=== PATIENT | female | born 1955 | race Caucasian/White ===

== ENCOUNTER 2018-07-11 15:42 | Inpatient (IN) | payer OTHER, MEDICARE ==
[2018-07-11 16:36] LABS: HGB - HEMOGLOBIN 10.8 g/dL (12.0-16.0); MEAN CORPUSCULAR HEMOGLOBIN 27.7 pg (27.0-31.0); MEAN CORPUSCULAR HGB CONC 32.9 g/dL (32.0-36.0); MEAN CORPUSCULAR VOLUME 84.2 fL (81.0-99.0); MEAN PLATELET VOLUME 6.2 fL (7.9-10.8); RED BLOOD COUNT 3.88 10^6/uL (4.20-5.40); RED CELL DISTRIBUTION WIDTH 13.7 % (12.0-15.0); WHITE BLOOD COUNT 11.1 x10^3/uL (4.8-10.8)
[2018-07-11 16:49] LABS: ALBUMIN 3.6 g/dL (3.2-5.5); ALBUMIN/GLOBULIN RATIO 1.1 (1.0-2.2); BILIRUBIN,TOTAL 0.5 mg/dL (0.2-1.0); CALCIUM 8.6 mg/dL (8.5-10.3); CREATININE 0.9 mg/dL (0.4-1.0); TOTAL PROTEIN 6.8 g/dL (6.7-8.2)
--- NOTE | 2018-07-11 16:50 | ED Physician Documentation ---
PD HPI GI BLEED - Stated complaint Stated Complaint: BLOODY STOOL/1 WK POST OP - Chief complaint Chief Complaint: Abd Pain - History obtained from History obtained from: Patient - History of Present Illness Timing - onset: Yesterday (LLQ pain and bloody diarrhea started yesterday and continues today.) Timing - duration: Days (2) Timing - details: Abrupt onset, Still present Associated symptoms: BRBPR, Diarrhea Contributing factors: NSAID use. No: Sick contact, Bad food, Recent antibiotics Improved by: BM. No: Eating Worsened by: Position, Palpation. No: Eating Similar symptoms before: Has not had sx before (History of diverticuli on prior colonoscopies but no diverticulitis episodes in the past.) Recently seen: Surgery (right knee replacement about 10 days ago.) Review of Systems Constitutional: reports: Fatigue. denies: Fever, Chills Nose: denies: Rhinorrhea / runny nose, Congestion Throat: denies: Sore throat Cardiac: denies: Chest pain / pressure Respiratory: denies: Dyspnea, Cough GI: reports: Abdominal Pain, Nausea, Diarrhea, Bloody / black stool. denies: Vomiting : denies: Dysuria, Frequency Skin: denies: Rash, Lesions Neurologic: reports: Generalized weakness. denies: Focal weakness, Numbness PD PAST MEDICAL HISTORY - Past Medical History Past Medical History: Yes Cardiovascular: None Respiratory: None Neuro: None Endocrine/Autoimmune: HyPOthyroidism GI: Hiatal hernia MEDICAL SERVICES ASSISTANT: None : None HEENT: None Psych: None Musculoskeletal: Other - Past Surgical History General: Hiatal hernia repair Ortho: Other - Present Medications Home Medications: Ambulatory Orders Medication Instructions Recorded Confirmed Acetaminophen [Tylenol] 650 mg PO Q6H PRN 07/11/18 07/11/18 Aspirin Chewable [St 07/11/18 Aspirin] Celecoxib [CeleBREX] 200 mg PO DAILY 07/11/18 07/11/18 Diclofenac Sodium 100 gm TP 07/11/18 07/11/18 Ferrous Gluconate 07/11/18 Gabapentin [Neurontin] 100 mg PO ONCE 07/11/18 07/11/18 Glucosamine/D3/Boswellia Samia 07/11/18 [Osteo Bi-Flex Tablet] HYDROmorphone [Dilaudid] 2 mg PO Q6H 07/11/18 07/11/18 Lactobacillus Acidophilus 07/11/18 [Probiotic Acidophilus] Levothyroxine [Synthroid] 07/11/18 Lidocaine Patch 5% [Lidoderm Patch] 07/11/18 Ondansetron HCl [Zofran] 4 mg PO 07/11/18 Sennosides [Evac-U-Gen] 8.6 mg PO 07/11/18 - Allergies Allergies/Adverse Reactions: Allergies Allergy/AdvReac Type Severity Reaction Status Date / Time cortisone Allergy Anaphylaxis Verified 11/17/15 10:34 valacyclovir Allergy Emesis Verified 07/11/18 16:10 - Social History Does the pt smoke?: No Smoking Status: Never smoker Does the pt drink ETOH?: No Does the pt have substance abuse?: No - Immunizations Immunizations are current?: Yes - POLST Patient has POLST: No PD ED PE NORMAL - Vitals Vital signs reviewed: Yes - General General: Alert and oriented X 3, Well developed/nourished, Other (appesra in pain due to abd. ) - HEENT HEENT: Moist mucous membranes, Pharynx benign - Neck Neck: Supple, no meningeal sign, No adenopathy - Cardiac Cardiac: RRR, No murmur - Respiratory Respiratory: Clear bilaterally - Abdomen Abdomen: Normal bowel sounds, Soft, Non distended, No organomegaly, Other (tender LLQ with local guarding but no percussion nor rebound tenderness. ) - Female Female : Deferred - Rectal Rectal: Deferred, Other (she had BM in ER, into commode, and had red bloody diarrhea, about 30 ml. ) - Back Back: No CVA TTP - Derm Derm: Normal color - Extremities Extremities: No edema, No calf tenderness / cord, Other (right knee with surgical wound anteriorly without sign of infection.) - Neuro Neuro: Alert and oriented X 3, No motor deficit, No sensory deficit, Normal speech - Psych Psych: Normal mood Results - Vitals Vitals: Vital Signs - 24 hr 07/11/18 07/11/18 16:07 18:25 Temperature 36 C L Heart Rate 80 68 Respiratory 20 16 Rate Blood Pressure 164/81 H 154/76 H O2 Saturation 100 98 Oxygen O2 Source Room air - Labs Labs: Microbiology 07/11/18 17:20 Clostridium difficile (PCR) - Final Stool Laboratory Tests 07/11/18 07/11/18 07/11/18 10:05 16:26 16:26 WBC 10.7 11.1 H RBC 3.22 L 3.88 L Hgb 9.1 L 10.8 L Hct 27.5 L 32.7 L MCV 85.3 84.2 MCH 28.4 27.7 MCHC 33.3 32.9 RDW 14.0 13.7 Plt Count 328 384 MPV 6.2 L 6.2 L PT INR APTT Sodium Potassium Chloride Carbon Dioxide Anion Gap BUN Creatinine Estimated GFR (MDRD) Glucose Calcium Total Bilirubin AST ALT Alkaline Phosphatase Total Protein Albumin Globulin Albumin/Globulin Ratio Lipase Blood Type B POSITIVE Antibody Screen NEGATIVE 07/11/18 07/11/18 16:26 16:26 WBC RBC Hgb Hct MCV MCH MCHC RDW Plt Count MPV PT 12.2 INR 1.1 APTT 26.8 Sodium 139 Potassium 3.7 Chloride 103 Carbon Dioxide 27 Anion Gap 9.0 BUN 29 H Creatinine 0.9 Estimated GFR (MDRD) 63 L Glucose 105 H Calcium 8.6 Total Bilirubin 0.5 AST 28 ALT 32 Alkaline Phosphatase 134 H Total Protein 6.8 Albumin 3.6 Globulin 3.2 Albumin/Globulin Ratio 1.1 Lipase 28 Blood Type Antibody Screen - Rads (name of study) abd CT Radiology: Prelim report reviewed (sigmoid diverticulitis without perforation nor abscess. ), EMP read contemporaneously PD MEDICAL DECISION MAKING - ED course Complexity details: reviewed results, re-evaluated patient, considered differential (consider diverticulitis vs c.diff or colitis. ), d/w patient - Sepsis Event Vital Signs: Vital Signs - 24 hr 07/11/18 07/11/18 16:07 18:25 Temperature 36 C L Heart Rate 80 68 Respiratory 20 16 Rate Blood Pressure 164/81 H 154/76 H O2 Saturation 100 98 Oxygen O2 Source Room air Departure - Departure Disposition: ED Place in Observation Clinical Impression: Bloody diarrhea, Acute diverticulitis Condition: Stable Record reviewed to determine appropriate education?: Yes Discharge Date/Time: 07/11/18 20:53
[2018-07-11 16:54] LABS: INR 1.1 (0.8-1.2); PT - PROTHROMBIN TIME 12.2 secs (9.9-12.6)
[2018-07-11] MEDS ORDERED: MORPHINE 10 MG/ML VIAL IVP STA (17:16)
[2018-07-11] MEDS ORDERED: metroNIDAZOLE 500 MG/100 ML 500 MG/100 ML BAG IV ONE (17:16)
[2018-07-11] MEDS ORDERED: SODIUM CHLORIDE 0.9% 1,000 ML IV ONE (17:16)
[2018-07-11] MEDS ORDERED: IOPAMIDOL-300 100 ML VIAL ONE (17:21)
[2018-07-11] MEDS ORDERED: IOPAMIDOL-300 100 ML VIAL IVP ONE (17:38)
--- NOTE | 2018-07-11 18:28 | CT Report ---
Reason: LLQ pain and bloody stool; eval for divertic Procedure Date: 07/11/2018 Accession Number: [id number] / [id number] Procedure: CT - Abdomen/Pelvis W/ CPT Code: FULL RESULT: EXAM: CT ABDOMEN AND PELVIS EXAM DATE: 07/11/2018 05:48 PM. CLINICAL HISTORY: Left lower quadrant pain. Bloody stool. COMPARISONS: None. TECHNIQUE: Routine helical CT imaging was performed through the abdomen and pelvis. IV contrast: 100 cc Isovue-300. Enteric contrast: No. Reconstructions: Coronal and sagittal. In accordance with CT protocol optimization, one or more of the following dose reduction techniques were utilized for this exam: automated exposure control, adjustment of mA and/or KV based on patient size, or use of iterative reconstructive technique. FINDINGS: Lung Bases: Unremarkable. Liver: Normal. No masses. Gallbladder/Bile Ducts: Unremarkable. Spleen: Normal. Pancreas: Normal. Adrenal Glands: Normal. Kidneys: Normal. No masses or hydronephrosis. Peritoneal Cavity/Bowel: Diverticula off the colon. Mild wall thickening, mildly inflamed diverticuli and minimal adjacent edema involving a 3 cm segment proximal sigmoid colon coronal image 27, axial image 67. No extraluminal air nor abscess. No free air, free fluid nor adenopathy. Appendix not visualized but no inflammatory changes adjacent to the cecum. Pelvic Organs: Normal. The bladder and visualized pelvic organs are within normal limits. Vasculature: No aneurysms or other significant abnormality. Bones: No significant abnormality. Other: None. IMPRESSION: 1. 3 cm segment of mildly abnormal proximal sigmoid colon consistent with uncomplicated diverticulitis. Full differential would include colitis, pseudomembranous colitis, inflammatory bowel disease or ischemia. 2. The rest of the study is unremarkable. RADIA
[2018-07-11] MEDS ORDERED: cefTRIAXone 1 GM in SODIUM CHLORIDE 0.9% MINIBAG 100 ML IV STA (18:34)
[2018-07-11] MEDS ORDERED: HYDROmorphone 1 MG/ML CARPUJECT IVP STA (18:56)
[2018-07-11] MEDS ORDERED: KETOROLAC 15 MG/ML VIAL IVP STA (18:56)
[2018-07-11] MEDS ORDERED: ONDANSETRON 4 MG/2 ML VIAL IVP PRN (20:00)
[2018-07-11] MEDS ORDERED: ONDANSETRON ODT 4 MG TABLET TL PRN (20:00)
[2018-07-11] MEDS ORDERED: PIPERACILLIN/TAZOBACTAM 3.375 GM in SODIUM CHLORIDE 0.9% MINIBAG 100 ML IV STA (20:09)
[2018-07-11] MEDS ORDERED: GABAPENTIN 100 MG CAPSULE PO SCH (21:00)
[2018-07-11] MEDS: SODIUM CHLORIDE 0.9% 1,000 ML IV SCH (21:11)
[2018-07-11] MEDS: SODIUM CHLORIDE FLUSH 0.9% 10 ML SYRINGE IVP PRN (21:11)
[2018-07-11] MEDS: oxyCODONE 5 MG TABLET PO PRN (21:52)
[2018-07-11] MEDS: PIPERACILLIN/TAZOBACTAM 3.375 GM in SODIUM CHLORIDE 0.9% MINIBAG 100 ML IV SCH (21:53)
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
[2018-07-11 22:15] LABS: HGB - HEMOGLOBIN 9.1 g/dL (12.0-16.0); MEAN CORPUSCULAR HEMOGLOBIN 28.4 pg (27.0-31.0); MEAN CORPUSCULAR HGB CONC 33.3 g/dL (32.0-36.0); MEAN CORPUSCULAR VOLUME 85.3 fL (81.0-99.0); MEAN PLATELET VOLUME 6.2 fL (7.9-10.8); RED BLOOD COUNT 3.22 10^6/uL (4.20-5.40); WHITE BLOOD COUNT 10.7 x10^3/uL (4.8-10.8)
[2018-07-11] MEDS: SODIUM CHLORIDE FLUSH 0.9% 10 ML SYRINGE IVP SCH (23:32)
[2018-07-12] MEDS: SODIUM CHLORIDE FLUSH 0.9% 10 ML SYRINGE IVP PRN (00:22)
[2018-07-12] MEDS: HYDROmorphone 2 MG/ML VIAL IVP PRN ×3 (00:22→15:54)
[2018-07-12] MEDS: oxyCODONE 5 MG TABLET PO PRN ×4 (02:26→23:51)
[2018-07-12] MEDS: PIPERACILLIN/TAZOBACTAM 3.375 GM in SODIUM CHLORIDE 0.9% MINIBAG 100 ML IV SCH ×3 (05:06→20:49)
[2018-07-12 05:50] LABS: BASOPHILS # (AUTO) 0.1 10^3/uL (0.0-0.1); BASOPHILS % (AUTO) 0.6 %; CALCIUM 7.4 mg/dL (8.5-10.3); CREATININE 0.8 mg/dL (0.4-1.0); EOSINOPHILS # (AUTO) 0.2 10^3/uL (0.0-0.7); EOSINOPHILS % (AUTO) 1.8 %; HGB - HEMOGLOBIN 8.1 g/dL (12.0-16.0); LYMPHOCYTES # (AUTO) 1.3 10^3/uL (1.5-3.5); LYMPHOCYTES % (AUTO) 14.7 %; MEAN CORPUSCULAR HGB CONC 34.2 g/dL (32.0-36.0); MEAN CORPUSCULAR VOLUME 84.7 fL (81.0-99.0); MEAN PLATELET VOLUME 6.3 fL (7.9-10.8); MONOCYTES # (AUTO) 0.3 10^3/uL (0.0-1.0); MONOCYTES % (AUTO) 3.8 %; NEUTROPHILS # (AUTO) 7.2 10^3/uL (1.5-6.6); NEUTROPHILS % (AUTO) 79.1 %; PLT - PLATELET COUNT 321 10^3/uL (130-450); RED CELL DISTRIBUTION WIDTH 13.8 % (12.0-15.0)
[2018-07-12] MEDS ORDERED: ACETAMINOPHEN 325 MG TABLET PO SCH (08:58)
[2018-07-12] MEDS ORDERED: diphenhydrAMINE 25 MG CAPSULE PO SCH (08:58)
[2018-07-12] MEDS ORDERED: SODIUM CHLORIDE 0.9% 1,000 ML IV SCH (09:00)
[2018-07-12] MEDS: SODIUM CHLORIDE FLUSH 0.9% 10 ML SYRINGE IVP SCH ×2 (09:01→15:55)
[2018-07-12] MEDS: POLYETHYLENE GLYCOL 3350 17 GM PACKET PO SCH (09:01)
--- NOTE | 2018-07-12 09:03 | PROVIDER PROGRESS NOTE ---
Subjective - Prog Note Date Prog Note Date: 07/12/18 Prog Note Time: 09:00 - Subjective Pt reports feeling: Improved Subjective: Skye complains of ongoing LLQ pain, and states that she has not had any BMs since admission. She denies any new symptoms such as increased shortness of breath, nausea, vomiting, rashes, or a new cough. Current Medications - Current Medications Current Medications: Active Medications Ferrous Gluconate (Fergon) 324 mg PO DAILYWM [facility] Last Admin: 07/12/18 09:44 Dose: 324 mg Hydromorphone HCl (Dilaudid (Vial)) 2 mg IVP Q2H PRN PRN Reason: PAIN Last Admin: 07/12/18 15:54 Dose: 2 mg Sodium Chloride (Normal Saline 0.9%) 1,000 mls @ 85 mls/hr IV .[id number] [facility] Last Admin: 07/12/18 13:13 Dose: 85 mls/hr Piperacillin Sod/Tazobactam (Sod 3.375 gm/ Sodium Chloride) 100 mls @ 200 mls/hr IV Q8H [facility] Last Infusion: 07/12/18 14:27 Dose: Infused Sodium Chloride (Normal Saline 0.9%) 1,000 mls @ 0 mls/hr IV .Q0M SUHAIL Ibuprofen (Motrin) 800 mg PO BID PRN PRN Reason: PAIN Lactobacillus Rhamnosus (Culturelle) 1 cap PO DAILYWM [facility] Last Admin: 07/12/18 12:07 Dose: 1 cap Levothyroxine Sodium (Synthroid) 75 mcg PO QDAC [facility] Last Admin: 07/12/18 09:44 Dose: 75 mcg Ondansetron HCl (Zofran Inj) 4 mg IVP Q6HR PRN PRN Reason: Nausea / Vomiting Ondansetron HCl (Zofran Odt) 4 mg TL Q6HR PRN PRN Reason: Nausea / Vomiting Last Admin: 07/12/18 02:04 Dose: 4 mg Oxycodone HCl (Roxicodone) 5 mg PO Q4HR PRN PRN Reason: Pain 5 to 7 Last Admin: 07/12/18 11:54 Dose: 5 mg Polyethylene Glycol (Miralax) 17 gm PO DAILY [facility] Last Admin: 07/12/18 09:01 Dose: Not Given Sodium Chloride (Normal Saline Flush 0.9%) 10 ml IVP PRN PRN PRN Reason: NEEDED PER PROVIDER ORDERS Last Admin: 07/12/18 00:22 Dose: 10 ml Sodium Chloride (Normal Saline Flush 0.9%) 10 ml IVP 0100,0900,1700 SUHAIL Last Admin: 07/12/18 15:55 Dose: 10 ml Ferrous Gluconate 324 mg PO DAILY 07/11/18 Glucosamine/D3/Boswellia Samia [Osteo Bi-Flex Tablet] 1 tab PO DAILY 07/11/18 Lactobacillus Acidophilus [Probiotic Acidophilus] 1 cap PO DAILY 07/11/18 Levothyroxine [Synthroid] 75 mcg PO QDAC 07/11/18 Ibuprofen 800 mg PO BID PRN 07/12/18 Objective - Vital Signs/Intake & Output Reviewed Vital Signs: Yes Vital Signs: Vital Signs x48h Temp Pulse Resp BP Pulse Ox 07/12/18 08:00 36.8 C 66 16 107/40 L 99 Intake & Output: Intake & Output 07/09/18 07/10/18 07/11/18 07/12/18 23:59 23:59 23:59 23:59 Intake Total 1300 240 Balance 1300 240 - Objective General Appearance: positive: No acute distress, Alert, Lethargic Eyes Bilateral: positive: PERRL ENT: positive: ENT inspection nml, Dry mucous membranes Neck: positive: No JVD Respiratory: positive: Chest non-tender, No respiratory distress, Breath sounds nml Cardiovascular: positive: Regular rate & rhythm, No murmur, No gallop Peripheral Pulses: 1+ Radial (R), 1+ Radial (L) Abdomen: positive: Tenderness (LLQ), Guarding, Abnml bowel sounds, Other (rounded, soft) Back: positive: Nml inspection Skin: positive: No rash, Warm, Dry, Pallor Extremities: positive: Non-tender, Pedal edema, Joint swelling (right knee) Neurologic/Psychiatric: positive: Oriented x3, CN's nml (2-12), Motor nml, Sensation nml, Mood/affect nml Reflexes: Bicep (R): 3+, Bicep (L): 3+ - Lab Results Fish Bones: 07/12/18 15:20 07/12/18 05:31 Other Labs: Lab Results x24hrs 0907/12/18 07/11/18 Range/Units 05:31 05:31 16:26 WBC 9.0 (4.8-10.8) x10^3/uL RBC 2.80 L (4.20-5.40) 10^6/uL Hgb 8.1 L (12.0-16.0) g/dL Hct 23.7 L (37.0-47.0) % MCV 84.7 (81.0-99.0) fL MCH 29.0 (27.0-31.0) pg MCHC 34.2 (32.0-36.0) g/dL RDW 13.8 (12.0-15.0) % Plt Count 321 (130-450) 10^3/uL MPV 6.3 L (7.9-10.8) fL Neut # (Auto) 7.2 H (1.5-6.6) 10^3/uL Lymph # (Auto) 1.3 L (1.5-3.5) 10^3/uL [place] # (Auto) 0.3 (0.0-1.0) 10^3/uL Eos # (Auto) 0.2 (0.0-0.7) 10^3/uL Baso # (Auto) 0.1 (0.0-0.1) 10^3/uL Absolute Nucleated RBC 0.00 x10^3/uL Nucleated RBC % 0.0 /100WBC PT (9.9-12.6) secs INR (0.8-1.2) APTT (24.9-33.3) secs Sodium 138 139 (135-145) mmol/L Potassium 3.9 3.7 (3.5-5.0) mmol/L Chloride 105 103 (101-111) mmol/L Carbon Dioxide 26 27 (21-32) mmol/L Anion Gap 7.0 9.0 (6-13) BUN 24 H 29 H (6-20) mg/dL Creatinine 0.8 0.9 (0.4-1.0) mg/dL Estimated GFR (MDRD) 72 L 63 L (>89) Glucose 98 105 H (70-100) mg/dL Calcium 7.4 L 8.6 (8.5-10.3) mg/dL Total Bilirubin 0.5 (0.2-1.0) mg/dL AST 28 (10-42) IU/L ALT 32 (10-60) IU/L Alkaline Phosphatase 134 H (42-121) IU/L Total Protein 6.8 (6.7-8.2) g/dL Albumin 3.6 (3.2-5.5) g/dL Globulin 3.2 (2.1-4.2) g/dL Albumin/Globulin Ratio 1.1 (1.0-2.2) Lipase 28 (22-51) U/L Blood Type Antibody Screen 07/11/18 07/11/18 07/11/18 Range/Units 16:26 16:26 16:26 WBC 11.1 H (4.8-10.8) x10^3/uL RBC 3.88 L (4.20-5.40) 10^6/uL Hgb 10.8 L (12.0-16.0) g/dL Hct 32.7 L (37.0-47.0) % MCV 84.2 (81.0-99.0) fL MCH 27.7 (27.0-31.0) pg MCHC 32.9 (32.0-36.0) g/dL RDW 13.7 (12.0-15.0) % Plt Count 384 (130-450) 10^3/uL MPV 6.2 L (7.9-10.8) fL Neut # (Auto) (1.5-6.6) 10^3/uL Lymph # (Auto) (1.5-3.5) 10^3/uL [place] # (Auto) (0.0-1.0) 10^3/uL Eos # (Auto) (0.0-0.7) 10^3/uL Baso # (Auto) (0.0-0.1) 10^3/uL Absolute Nucleated RBC x10^3/uL Nucleated RBC % /100WBC PT 12.2 (9.9-12.6) secs INR 1.1 (0.8-1.2) APTT 26.8 (24.9-33.3) secs Sodium (135-145) mmol/L Potassium (3.5-5.0) mmol/L Chloride (101-111) mmol/L Carbon Dioxide (21-32) mmol/L Anion Gap (6-13) BUN (6-20) mg/dL Creatinine (0.4-1.0) mg/dL Estimated GFR (MDRD) (>89) Glucose (70-100) mg/dL Calcium (8.5-10.3) mg/dL Total Bilirubin (0.2-1.0) mg/dL AST (10-42) IU/L ALT (10-60) IU/L Alkaline Phosphatase (42-121) IU/L Total Protein (6.7-8.2) g/dL Albumin (3.2-5.5) g/dL Globulin (2.1-4.2) g/dL Albumin/Globulin Ratio (1.0-2.2) Lipase (22-51) U/L Blood Type B POSITIVE Antibody Screen NEGATIVE 07/11/18 Range/Units 10:05 WBC 10.7 (4.8-10.8) x10^3/uL RBC 3.22 L (4.20-5.40) 10^6/uL Hgb 9.1 L (12.0-16.0) g/dL Hct 27.5 L (37.0-47.0) % MCV 85.3 (81.0-99.0) fL MCH 28.4 (27.0-31.0) pg MCHC 33.3 (32.0-36.0) g/dL RDW 14.0 (12.0-15.0) % Plt Count 328 (130-450) 10^3/uL MPV 6.2 L (7.9-10.8) fL Neut # (Auto) (1.5-6.6) 10^3/uL Lymph # (Auto) (1.5-3.5) 10^3/uL [place] # (Auto) (0.0-1.0) 10^3/uL Eos # (Auto) (0.0-0.7) 10^3/uL Baso # (Auto) (0.0-0.1) 10^3/uL Absolute Nucleated RBC x10^3/uL Nucleated RBC % /100WBC PT (9.9-12.6) secs INR (0.8-1.2) APTT (24.9-33.3) secs Sodium (135-145) mmol/L Potassium (3.5-5.0) mmol/L Chloride (101-111) mmol/L Carbon Dioxide (21-32) mmol/L Anion Gap (6-13) BUN (6-20) mg/dL Creatinine (0.4-1.0) mg/dL Estimated GFR (MDRD) (>89) Glucose (70-100) mg/dL Calcium (8.5-10.3) mg/dL Total Bilirubin (0.2-1.0) mg/dL AST (10-42) IU/L ALT (10-60) IU/L Alkaline Phosphatase (42-121) IU/L Total Protein (6.7-8.2) g/dL Albumin (3.2-5.5) g/dL Globulin (2.1-4.2) g/dL Albumin/Globulin Ratio (1.0-2.2) Lipase (22-51) U/L Blood Type Antibody Screen - Diagnostic Imaging Diagnostic Imaging Results: positive: Final report reviewed Diagnostic Imaging Comments: EXAM: CT ABDOMEN AND PELVIS EXAM DATE: 07/11/2018 05:48 PM. IMPRESSION: 1. 3 cm segment of mildly abnormal proximal sigmoid colon consistent with uncomplicated diverticulitis. Full differential would include colitis, pseudomembranous colitis, inflammatory bowel disease or ischemia. 2. The rest of the study is unremarkable. ABX Reporting Has patient been on IV antibiotics over the past 48 hours?: Yes Assessment/Plan - Problem List (1) Acute diverticulitis Impression: The patient is post-op after a right knee replacement and at home was very constipated, so took several different laxatives, which worked. She soon noticed that her stools were mixed with blood, then turned to straight blood diarrhea accompanied with LLQ abdominal sharp stabbing pain that radiates to her low back. She is found to have a mild elevation of her WBCs at 11.1. She is now on clear liquids and was started on IV Zosyn. Plan: Continue IV Zosyn and CL diet. Treat pain. (2) LLQ abdominal pain Impression: The patient states that she cannot link this pain to her oral intake. She is found to have acute diverticulitis upon imaging and this matches her symptoms. She has been on IV Zosyn. Plan: Continue IV dilaudid for pain control. Encourage ambulation. (3) Anemia Impression: The patient was found to have a slightly lower than baseline hemoglobin and hematocrit at 10.8 and 32.7, that are now lower at 8.1 and 23.7. She states that she becomes dizzy and slightly short of breath while in the bathroom. She is also mildly hypotensive this morning with a blood pressure of 107/40, when previously she had been 126/53 and hypertensive after arriving in the ED. She has no amish rejections to blood and is agreeable for replacement today. Plan: Transfuse 1 unit of blood, change to inpatient status, and re-check labs ~1600. 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 Plan: Continue to monitor and if only mildly elevated, will let PCP handle. Qualifiers: Hypertension type: unspecified Qualified Code(s): I10 - Essential (primary) hypertension (5) Status post total knee replacement, right Impression: The patient underwent a knee replacement on 06/30/18, and has an uncomplicated recovery with the exception of constipation. She was on DVT prophylaxis using a regular aspirin, that is temporarily on hold. She is encouraged to use SCDs until tomorrow when we can continue her Asprin given her falling H/H and blood transfusion today. Plan: Continue post-op care, and ensure that PT is ordered. (6) Iatrogenic hypothyroidism Impression: The patient is prescribed daily synthroid at 75mcg daily. Her last TSH is unknown. Plan: Check morning TSH, continue medication.
[2018-07-12] MEDS: LEVOTHYROXINE 75 MCG TABLET PO SCH (09:44)
[2018-07-12] MEDS: FERROUS GLUCONATE 324 MG TABLET PO SCH (09:44)
[2018-07-12] MEDS: LACTOBACILLUS RHAMNOSUS GG CAPSULE PO SCH (12:07)
[2018-07-12] MEDS: SODIUM CHLORIDE 0.9% 1,000 ML IV SCH (13:13)
[2018-07-12] MEDS ORDERED: ACETAMINOPHEN 325 MG TABLET PO PRN (20:59)
[2018-07-13] MEDS: SODIUM CHLORIDE 0.9% 1,000 ML IV SCH (02:03)
[2018-07-13] MEDS: SODIUM CHLORIDE FLUSH 0.9% 10 ML SYRINGE IVP SCH ×3 (02:03→16:32)
[2018-07-13] MEDS: IBUPROFEN 800 MG TABLET PO PRN ×2 (02:06→16:39)
[2018-07-13] MEDS: PIPERACILLIN/TAZOBACTAM 3.375 GM in SODIUM CHLORIDE 0.9% MINIBAG 100 ML IV SCH ×3 (04:57→20:36)
[2018-07-13] MEDS: oxyCODONE 5 MG TABLET PO PRN ×2 (04:57→09:46)
[2018-07-13 05:46] LABS: EOSINOPHILS % (AUTO) 4.7 %; HGB - HEMOGLOBIN 9.1 g/dL (12.0-16.0); LYMPHOCYTES % (AUTO) 19.5 %; MEAN CORPUSCULAR HEMOGLOBIN 28.3 pg (27.0-31.0); MEAN CORPUSCULAR HGB CONC 33.6 g/dL (32.0-36.0); MEAN CORPUSCULAR VOLUME 84.1 fL (81.0-99.0); MEAN PLATELET VOLUME 6.5 fL (7.9-10.8); NEUTROPHILS % (AUTO) 70.8 %; PLT - PLATELET COUNT 342 10^3/uL (130-450); RED CELL DISTRIBUTION WIDTH 14.2 % (12.0-15.0); WHITE BLOOD COUNT 7.9 x10^3/uL (4.8-10.8)
[2018-07-13 05:48] LABS: ABNORMAL LYMPHS % (MANUAL) 0 %; ALBUMIN 3.2 g/dL (3.2-5.5); ALBUMIN/GLOBULIN RATIO 1.2 (1.0-2.2); BAND NEUTROPHILS % (MANUAL) 0 %; BILIRUBIN,TOTAL 0.5 mg/dL (0.2-1.0); CALCIUM 7.9 mg/dL (8.5-10.3); CREATININE 0.7 mg/dL (0.4-1.0); TOTAL PROTEIN 5.9 g/dL (6.7-8.2)
[2018-07-13] MEDS: LEVOTHYROXINE 75 MCG TABLET PO SCH (06:46)
[2018-07-13 06:56] LABS: NEUTROPHILS % (MANUAL) 61 %
[2018-07-13 06:57] LABS: DIFFERENTIAL COMMENT MANUAL DIFFERENTIAL; EOSINOPHILS # (MANUAL) 0.6 10^3/uL (0-0.7); LYMPHOCYTES # (MANUAL) 2.1 10^3/uL (1.5-3.5); LYMPHOCYTES % (MANUAL) 26 %; METAMYELOCYTES % (MANUAL) 1 %; MONOCYTES # (MANUAL) 0.2 10^3/uL (0.0-1.0); MYELOCYTES % (MANUAL) 1 %; NEUTROPHILS # (MANUAL) 4.8 10^3/uL (1.5-6.6); PLATELET ESTIMATE, MANUAL NORMAL (130-450,000) (NORMAL); RBC MORPHOLOGY (MULTIPLE) NORMAL APPEARANCE (NORMAL)
[2018-07-13] MEDS: FERROUS GLUCONATE 324 MG TABLET PO SCH (07:54)
[2018-07-13] MEDS: LACTOBACILLUS RHAMNOSUS GG CAPSULE PO SCH (07:54)
[2018-07-13] MEDS: POLYETHYLENE GLYCOL 3350 17 GM PACKET PO SCH (09:09)
[2018-07-13] MEDS: ASPIRIN EC 325 MG TABLET PO SCH (09:12)
[2018-07-13] MEDS: SODIUM CHLORIDE FLUSH 0.9% 10 ML SYRINGE IVP PRN (20:36)
--- NOTE | 2018-07-13 20:51 | PROVIDER PROGRESS NOTE ---
Subjective - Prog Note Date Prog Note Date: 07/13/18 Prog Note Time: 08:00 - Subjective Pt reports feeling: Improved Subjective: Skye states that very early this morning she had some blood streaked stool, but is having less abdominal pain. She denies any new symptoms such as chest pain, vomiting, dizziness, shortness of breath, or dysuria. Current Medications - Current Medications Current Medications: Active Medications Acetaminophen (Tylenol) 650 mg PO Q6HR PRN PRN Reason: Pain or Fever > 38C (100.4F) Last Admin: 07/12/18 21:23 Dose: 650 mg Aspirin (Ecotrin) 325 mg PO DAILY [facility] Last Admin: 07/13/18 09:12 Dose: 325 mg Ferrous Gluconate (Fergon) 324 mg PO DAILYWM [facility] Last Admin: 07/13/18 07:54 Dose: 324 mg Hydromorphone HCl (Dilaudid (Vial)) 2 mg IVP Q2H PRN PRN Reason: PAIN Last Admin: 07/12/18 15:54 Dose: 2 mg Piperacillin Sod/Tazobactam (Sod 3.375 gm/ Sodium Chloride) 100 mls @ 200 mls/hr IV Q8H [facility] Last Admin: 07/13/18 20:36 Dose: 200 mls/hr Sodium Chloride (Normal Saline 0.9%) 1,000 mls @ 0 mls/hr IV .Q0M SUHAIL Ibuprofen (Motrin) 800 mg PO BID PRN PRN Reason: PAIN Last Admin: 07/13/18 16:39 Dose: 800 mg Lactobacillus Rhamnosus (Culturelle) 1 cap PO DAILYWM [facility] Last Admin: 07/13/18 07:54 Dose: 1 cap Levothyroxine Sodium (Synthroid) 75 mcg PO QDAC [facility] Last Admin: 07/13/18 06:46 Dose: 75 mcg Ondansetron HCl (Zofran Inj) 4 mg IVP Q6HR PRN PRN Reason: Nausea / Vomiting Last Admin: 07/13/18 09:47 Dose: 4 mg Ondansetron HCl (Zofran Odt) 4 mg TL Q6HR PRN PRN Reason: Nausea / Vomiting Last Admin: 07/12/18 02:04 Dose: 4 mg Oxycodone HCl (Roxicodone) 5 mg PO Q4HR PRN PRN Reason: Pain 5 to 7 Last Admin: 07/13/18 09:46 Dose: 5 mg Polyethylene Glycol (Miralax) 17 gm PO DAILY [facility] Last Admin: 07/13/18 09:09 Dose: Not Given Sodium Chloride (Normal Saline Flush 0.9%) 10 ml IVP PRN PRN PRN Reason: NEEDED PER PROVIDER ORDERS Last Admin: 07/13/18 20:36 Dose: 10 ml Sodium Chloride (Normal Saline Flush 0.9%) 10 ml IVP 0100,0900,1700 [facility] Last Admin: 07/13/18 16:32 Dose: 10 ml Ferrous Gluconate 324 mg PO DAILY 07/11/18 Glucosamine/D3/Boswellia Samia [Osteo Bi-Flex Tablet] 1 tab PO DAILY 07/11/18 Lactobacillus Acidophilus [Probiotic Acidophilus] 1 cap PO DAILY 07/11/18 Levothyroxine [Synthroid] 75 mcg PO QDAC 07/11/18 Ibuprofen 800 mg PO BID PRN 07/12/18 Objective - Vital Signs/Intake & Output Reviewed Vital Signs: Yes Vital Signs: Vital Signs x48h Temp Pulse Resp BP Pulse Ox 07/13/18 16:00 37.0 C 70 20 150/56 H 97 Intake & Output: Intake & Output 07/10/18 07/11/18 07/12/18 07/13/18 23:59 23:59 23:59 23:59 Intake Total 1300 3520 3210 Output Total 2 Balance 1300 3520 3208 - Objective General Appearance: positive: Alert, Mild distress Eyes Bilateral: positive: PERRL ENT: positive: ENT inspection nml, Pharynx nml, No signs of dehydration Neck: positive: Thyroid nml, No JVD Respiratory: positive: Chest non-tender, No respiratory distress, Breath sounds nml Cardiovascular: positive: Regular rate & rhythm, No gallop Peripheral Pulses: 1+ Radial (R), 1+ Radial (L) Abdomen: positive: Nml bowel sounds, Tenderness, Guarding, Other (obese, soft) Rectal: positive: Bloody stool Back: positive: Nml inspection Skin: positive: No rash, Warm, Dry, Pallor Extremities: positive: Pedal edema, Joint swelling (right post-op knee swelling) Neurologic/Psychiatric: positive: Oriented x3, CN's nml (2-12), Motor nml, Sensation nml, Mood/affect nml Reflexes: Bicep (R): 3+, Bicep (L): 3+ - Lab Results Fish Bones: 07/14/18 05:39 07/14/18 05:39 Other Labs: Lab Results x24hrs 07/13/18 07/13/18 Range/Units 05:18 05:18 WBC 7.9 (4.8-10.8) x10^3/uL RBC 3.20 L (4.20-5.40) 10^6/uL Hgb 9.1 L (12.0-16.0) g/dL Hct 26.9 L (37.0-47.0) % MCV 84.1 (81.0-99.0) fL MCH 28.3 (27.0-31.0) pg MCHC 33.6 (32.0-36.0) g/dL RDW 14.2 (12.0-15.0) % Plt Count 342 (130-450) 10^3/uL MPV 6.5 L (7.9-10.8) fL Neut # (Auto) Not Reportable Lymph # (Auto) Not Reportable [place] # (Auto) Not Reportable Eos # (Auto) Not Reportable Baso # (Auto) Not Reportable Absolute Nucleated RBC Not Reportable Total Counted 100 Band Neuts % (Manual) 0 (0 - 10) % Abnorm Lymph % (Manual) 0 % Metamyelocytes % 1 H ( - 0) % Myelocytes % 1 H ( - 0) % Nucleated RBC % Not Reportable Neutrophils # (Manual) 4.8 (1.5-6.6) 10^3/uL Lymphocytes # (Manual) 2.1 (1.5-3.5) 10^3/uL Monocytes # (Manual) 0.2 (0.0-1.0) 10^3/uL Eosinophils # (Manual) 0.6 (0-0.7) 10^3/uL Basophils # (Manual) 0.0 (0-0.1) 10^3/uL Differential Comment MANUAL DIFFERENTIAL Platelet Estimate NORMAL (130-450,000) (NORMAL) RBC Morph Micro Appear NORMAL APPEARANCE (NORMAL) Sodium 142 (135-145) mmol/L Potassium 3.6 (3.5-5.0) mmol/L Chloride 107 (101-111) mmol/L Carbon Dioxide 24 (21-32) mmol/L Anion Gap 11.0 (6-13) BUN 10 (6-20) mg/dL Creatinine 0.7 (0.4-1.0) mg/dL Estimated GFR (MDRD) 84 L (>89) Glucose 90 (70-100) mg/dL Calcium 7.9 L (8.5-10.3) mg/dL Total Bilirubin 0.5 (0.2-1.0) mg/dL AST 20 (10-42) IU/L ALT 21 (10-60) IU/L Alkaline Phosphatase 84 (42-121) IU/L Total Protein 5.9 L (6.7-8.2) g/dL Albumin 3.2 (3.2-5.5) g/dL Globulin 2.7 (2.1-4.2) g/dL Albumin/Globulin Ratio 1.2 (1.0-2.2) ABX Reporting Has patient been on IV antibiotics over the past 48 hours?: Yes Assessment/Plan - Problem List (1) Acute diverticulitis Impression: The patient is post-op after a right knee replacement and at home was very constipated, so took several different laxatives, which worked. She soon noticed that her stools were mixed with blood, then turned to straight blood diarrhea accompanied with LLQ abdominal sharp stabbing pain that radiates to her low back. She is found to have a mild elevation of her WBCs at 11.1, that is now normal. She is now on a regular diet, and IV Zosyn. Overnight she reported blood streaked stool. Plan: Continue IV Zosyn and a regular diet. Treat pain. (2) LLQ abdominal pain Impression: The patient states that she cannot link this pain to her oral intake. She is found to have acute diverticulitis upon imaging and this matches her symptoms. She continues on IV Zosyn. Plan: Continue IV dilaudid for pain control. Encourage ambulation. (3) Anemia Impression: The patient was found to have a slightly lower than baseline hemoglobin and hematocrit at 10.8 and 32.7, that are now lower at 8.1 and 23.7. She states that she becomes dizzy and slightly short of breath while in the bathroom. She was mildly hypotensive with a blood pressure of 107/40, when previously she had been 126/53 and hypertensive after arriving in the ED. She received one unit of PRBCs and has had an improvement in her blood level with an H/H of 9.1/26.9. Plan: Daily labs. Qualifiers: Anemia type: iron deficiency Iron deficiency anemia type: chronic blood loss Qualified Code(s): D50.0 - Iron deficiency anemia secondary to blood loss (chronic) (4) Hypertension Impression: The patient is not prescribed antihypertensives at home, and today she has normal blood pressures. Plan: Continue to monitor and if only mildly elevated, will let PCP handle. Qualifiers: Hypertension type: unspecified Qualified Code(s): I10 - Essential (primary) hypertension (5) Status post total knee replacement, right Impression: The patient underwent a knee replacement on 06/30/18, and has an uncomplicated recovery with the exception of constipation. She was on DVT prophylaxis using a regular aspirin. Plan: Continue post-op care. (6) Iatrogenic hypothyroidism Impression: The patient is prescribed daily synthroid at 75mcg daily. Her last TSH is unknown. Plan: Continue medication.
[2018-07-14] MEDS: IBUPROFEN 800 MG TABLET PO PRN ×2 (00:05→06:29)
[2018-07-14] MEDS: SODIUM CHLORIDE FLUSH 0.9% 10 ML SYRINGE IVP SCH ×2 (05:33→05:43)
[2018-07-14 05:58] LABS: BASOPHILS # (AUTO) 0.1 10^3/uL (0.0-0.1); BASOPHILS % (AUTO) 0.8 %; EOSINOPHILS # (AUTO) 0.3 10^3/uL (0.0-0.7); EOSINOPHILS % (AUTO) 3.9 %; HGB - HEMOGLOBIN 9.4 g/dL (12.0-16.0); LYMPHOCYTES # (AUTO) 1.2 10^3/uL (1.5-3.5); LYMPHOCYTES % (AUTO) 15.9 %; MEAN CORPUSCULAR HGB CONC 33.3 g/dL (32.0-36.0); MEAN CORPUSCULAR VOLUME 84.1 fL (81.0-99.0); MEAN PLATELET VOLUME 6.3 fL (7.9-10.8); MONOCYTES # (AUTO) 0.3 10^3/uL (0.0-1.0); MONOCYTES % (AUTO) 4.2 %; NEUTROPHILS # (AUTO) 5.7 10^3/uL (1.5-6.6); NEUTROPHILS % (AUTO) 75.2 %; PLT - PLATELET COUNT 376 10^3/uL (130-450); RED BLOOD COUNT 3.36 10^6/uL (4.20-5.40); RED CELL DISTRIBUTION WIDTH 14.1 % (12.0-15.0); WHITE BLOOD COUNT 7.5 x10^3/uL (4.8-10.8)
[2018-07-14 06:09] LABS: ALBUMIN 3.1 g/dL (3.2-5.5); ALBUMIN/GLOBULIN RATIO 1.1 (1.0-2.2); BILIRUBIN,TOTAL 0.4 mg/dL (0.2-1.0); CALCIUM 8.4 mg/dL (8.5-10.3); CREATININE 0.9 mg/dL (0.4-1.0); TOTAL PROTEIN 5.9 g/dL (6.7-8.2)
[2018-07-14] MEDS: LEVOTHYROXINE 75 MCG TABLET PO SCH (06:56)
--- NOTE | 2018-07-14 08:40 | Discharge Plan ---
Discharge Plan Disposition: Home, Self Care Condition: Good Prescriptions: Ciprofloxacin HCl [Cipro] 500 mg PO BID 10 Days #20 tablet Metronidazole [Flagyl] 500 mg PO BID 10 Days #20 tablet Saccharomyces Boulardii [Florastor] 250 mg PO BID #60 capsule Wheat Dextrin [Benefiber] 1 each PO DAILY #30 packet Diet: Regular Activity Restrictions: No Restrictions Shower Restrictions: No Driving Restrictions: No Weight Bearing: Full Weight Additional Instructions or Follow Up instructions: You were admitted for further treatment of your diverticulitis. You started on IV Zosyn, that will continue at home in an oral form using Ciprofloxacin and Flagyl for the next 10 days. You should take a probiotic to help maintain healthy gut bacteria. Try not to swallow these at the same exact moment as the antibiotics. It is recommended that you take Benefiber or Metamucil daily to achieve tooth paste consistency stool. Please have your PCP make a referral to get a colonoscopy in ~6 weeks. You became anemic, so you received one unit of packed red blood cells without difficulty. 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 Please see your PCP within one week. No Smoking: If you smoke, Please STOP! Call for help. Follow-up with: Ashlee Tejada MD [Primary Care Provider] -
[2018-07-14 08:41] VITALS: BP 139/59
--- NOTE | 2018-07-14 08:54 | DISCHARGE SUMMARY ---
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 Status post knee replacement (Z96.659) stable without complications. 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 Acute blood loss as cause of postoperative anemia (D62) new on this admission, iron supplement to continue. 1 unit of PRBCs given. Unspecified essential hypertension (I10) chronic, stable. LLQ abdominal pain (R10.32) resolved. - HPI History of Present Illness: HPI per Dr. Rodriguez: She is a 63-year-old female who has had an extensive GI workup with regards to anemia for several years. She says that she has had several upper endoscopies and lower endoscopies and has had to go [facility] in the [place] area to finally pin down the diagnosis of what caused her iron deficiency anemia. She is a type III hiatal hernia where half of her stomach was in her chest. With that workup she had numerous colonoscopies and is only found to have diverticulosis and external hemorrhoids. Her hernia repair was October 18, 2016 at the [facility]. She recently underwent a knee replacement on June 30. She has been on aspirin for anticoagulation. She is been progressing well and the knee pain is controlled with oxycodone. On the first 2-3 days she had severe constipation and needed to use senna followed by Dulcolax to finally have bowel movements. Bowel movements have been regular. No fever, no chills. Then 4 days later she started having the bloody diarrhea. No pain. No fever, no chills. No one else in her family is ill. There is been no recent travel because of the knee replac embarry. Today, the left lower quadrant stabbing sharp pain started. Made worse by having bowel movements. Made worse by walking and moving too much. Made better by sitting still. She came to the emergency room where she has a normal temperature, normal blood pressure. She has left lower quadrant pain with mild peritoneal findings. Stool C. difficile negative. White cell count is mildly elevated 11.1. And CT of the abdomen has 3 cm segment of mildly abnormal proximal sigmoid colon consistent with uncomplicated diverticulitis. The rest of her CT of the abdomen study is normal. Hemoglobin is 10.8. She is now placed in observation. If it were not for the bright red blood per rectum, she would actually be going home. But she may be having diverticular bleeding that is severe enough to warrant transfusion. She will receive single dose therapy with Zosyn, serial hemoglobins, and hopefully be able to leave soon. - HOSPITAL COURSE Hospital Course: (1) Acute diverticulitis The patient is post-op after a right knee replacement and at home was very constipated, so took several different laxatives, which worked. She soon noticed that her stools were mixed with blood, then turned to straight blood diarrhea accompanied with LLQ abdominal sharp stabbing pain that radiates to her low back. She is found to have a mild elevation of her WBCs at 11.1, that is now normal. She was advanced to a regular diet, treated with IV Zosyn. Her stools became free of blood streaking and she was started on Cipro/Flagyl/a prob iotic and Benefiber for home use which was sent to her pharmacy. (2) LLQ abdominal pain The patient states that she could not link this pain to her oral intake. She was found to have acute diverticulitis upon imaging and this matched her symptoms. At the time of discharge, the patient had nearly a complete resolution of her low abdominal pain and was tolerating a regular diet. (3) Anemia The patient was found to have a slightly lower than baseline hemoglobin and hematocrit at 10.8 and 32.7, that are now lower at 8.1 and 23.7. She states t hat she becomes dizzy and slightly short of breath while in the bathroom. She was mildly hypotensive with a blood pressure of 107/40, when previously she had been 126/53 and hypertensive after arriving in the ED. She received one unit of PRBCs and has had an improvement in her blood level with an H/H of 9.1/26.9. (4) Hypertension The patient is not prescribed antihypertensives at home, and today she has normal blood pressures. (5) Status post total knee replacement, right The patient underwent a knee replacement on 06/30/18, and has an uncomplicated recovery with the exception of constipation. She was on DVT prophylaxis using a regular aspirin. (6) Iatrogenic hypothyroidism The patient is prescribed daily synthroid at 75mcg daily. Her last TSH is unknown. Disposition: The patient was nearly pain free from her original diverticulitis pain located in her low abdomen. She was in stable condition and was tr ansported via private car home with family. - ALLERGIES Allergies/Adverse Reactions: Allergies Allergy/AdvReac Type Severity Reaction Status Date / Time cortisone Allergy Anaphylaxis Verified 11/17/15 10:34 valacyclovir Allergy Emesis Verified 07/11/18 16:10 - MEDICATIONS Home Medications: Ambulatory Orders Medication Instructions Recorded Confirmed Ferrous Gluconate 324 mg PO DAILY 07/11/18 07/12/18 Glucosamine/D3/Boswellia Samia 1 tab PO DAILY 07/11/18 07/12/18 [Osteo Bi-Flex Tablet] Lactobacillus Acidophilus 1 cap PO DAILY 07/11/18 07/12/18 [Probiotic Acidophilus] Levothyroxine [Synthroid] 75 mcg PO QDAC 07/11/18 07/12/18 Ibuprofen 800 mg PO BID PRN 07/12/18 07/12/18 Ciprofloxacin HCl [Cipro] 500 mg PO BID 10 Days #20 tablet 07/14/18 Metronidazole [Flagyl] 500 mg PO BID 10 Days #20 tablet 07/14/18 Saccharomyces Boulardii [Florastor] 250 mg PO BID #60 capsule 07/14/18 Wheat Dextrin [Benefiber] 1 each PO DAILY #30 packet 07/14/18 - PHYSICAL EXAM AT DISCHARGE General Appearance: positive: No acute distress, Alert Eyes Bilateral: positive: Normal inspection, PERRL ENT: positive: ENT inspection nml, Pharynx nml, No signs of dehydration Neck: positive: Nml inspection, Thyroid nml, No JVD, Trachea midline Respiratory: positive: Chest non-tender, No respiratory distress, Breath sounds nml Cardiovascular: positive: Regular rate & rhythm, No gallop, Systolic murmur Peripheral Pulses: positive: 2+ Abdomen: positive: Non-tender, Nml bowel sounds, Guarding, Other (obese, soft) Back: positive: Nml inspection Skin: positive: Color nml, No rash, Warm, Dry Extremities: positive: Non-tender, Full ROM, Pedal edema, Joint swelling (normal post-surgical swelling in right knee) Neurologic/Psychiatric: positive: Oriented x3, CN's nml (2-12), Motor nml, Sensation nml, Mood/affect nml Reflexes: Bicep (R): 4+, Bicep (L): 4+ - LABS Result Diagrams: 07/14/18 05:39 07/14/18 05:39 - DIAGNOSTIC IMAGING Diagnostic Imaging Results: Final report reviewed Diagnostic Imaging Results Comments: EXAM: CT ABDOMEN AND PELVIS EXAM DATE: 07/11/2018 05:48 PM. IMPRESSION: 1. 3 cm segment of mildly abnormal proximal sigmoid colon consistent with uncomplicated diverticulitis. Full differential would include colitis, pse udomembranous colitis, inflammatory bowel disease or ischemia. 2. The rest of the study is unremarkable. - FOLLOW UP Follow Up: Disposition: Home, Self Care Condition: Good Prescriptions: Ciprofloxacin HCl [Cipro] 500 mg PO BID 10 Days #20 tablet Metronidazole [Flagyl] 500 mg PO BID 10 Days #20 tablet Saccharomyces Boulardii [Florastor] 250 mg PO BID #60 capsule Wheat Dextrin [Benefiber] 1 each PO DAILY #30 packet Diet: Regular Activity Restrictions: No Restrictions Shower Restrictions: No Driving Restrictions: No Weight Bearing: Full Weight Additional Instructions or Follow Up instructions: You were admitted for further treatment of your diverticulitis. You started on IV Zosyn, that will continue at home in an oral form using Ciprofloxacin and Flagyl for the next 10 days. You should take a probiotic to help maintain healthy gut bacteria. Try not to swallow these at the same exact moment as the antibiotics. It is recommended that you take Benefiber or Metamucil daily to achieve tooth paste consistency stool. Please have your PCP make a referral to get a colonoscopy in ~6 weeks. You became anemic, so you received one unit of packed red blood cells without difficulty. 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 Please see your PCP within one week. - TIME SPENT Time Spent in Discharge (Minutes): 50
[2018-07-14] MEDS ORDERED: metroNIDAZOLE 250 MG TABLET PO SCH (09:00)
[2018-07-14] MEDS ORDERED: CIPROFLOXACIN 250 MG TABLET PO SCH (09:00)
[2018-07-14] MEDS: POLYETHYLENE GLYCOL 3350 17 GM PACKET PO SCH (09:23)
[2018-07-14] MEDS: ASPIRIN EC 325 MG TABLET PO SCH (09:23)
[2018-07-14] MEDS: FERROUS GLUCONATE 324 MG TABLET PO SCH (09:23)
[2018-07-14] MEDS: LACTOBACILLUS RHAMNOSUS GG CAPSULE PO SCH (09:23)
== END 2018-07-14 11:10 | disposition home or self-care (01) | DRG 392 ==
LOC: ED 15:42 → MS3 20:00 → OBSVTOIN 07-12 11:19
PROVIDERS: ADMIT Specialist; ATTEND Nurse Practitioner
PROC: 30233N1 Transfusion of Nonautologous Red Blood Cells into Peripheral Vein, Percutaneous Approach (ICD-10-PCS; principal; 2018-07-12)
DX: K57.92 Diverticulitis of intestine, part unspecified, without perforation or abscess without bleeding (principal); K92.1 Melena; D62 Acute posthemorrhagic anemia; Z66 Do not resuscitate; Z79.82 Long term (current) use of aspirin; K64.4 Residual hemorrhoidal skin tags; Z96.651 Presence of right artificial knee joint; E03.2 Hypothyroidism due to medicaments and other exogenous substances; R19.7 Diarrhea, unspecified; I10 Essential (primary) hypertension; D50.9 Iron deficiency anemia, unspecified
CPT/HCPCS: 36415; 74177; 80048; 80053; 83690; 85014; 85018; 85025; 85027; 85610; 85730; 86850; 86900; 86901; 86920; 87493; 93306; 96365; 96368; 96375; 99284

== ENCOUNTER 2022-06-09 12:14 | Outpatient (CLI) | payer MEDICARE, OTHER | END 2022-06-09 12:15 | disposition critical access hospital (66) | LOC: EMS 12:14 | DX: R41.0 Disorientation, unspecified (principal); R45.89 Other symptoms and signs involving emotional state | CPT/HCPCS: A0425; A0429 ==

== ENCOUNTER 2022-09-19 20:44 | Emergency (ER) | payer OTHER, MEDICARE ==
[2022-09-19 21:15] VITALS: BP 171/91
[2022-09-19] MEDS ORDERED: LIDOCAINE PATCH 5% TOP STA (21:51)
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
== END 2022-09-19 22:09 | disposition home or self-care (01) ==
LOC: ED 20:44
DX: S16.1XXA Strain of muscle, fascia and tendon at neck level, initial encounter (principal); V89.2XXA Person injured in unspecified motor-vehicle accident, traffic, initial encounter; Y93.89 Activity, other specified; Y92.411 Interstate highway as the place of occurrence of the external cause; Z66 Do not resuscitate
CPT/HCPCS: 99282; 99284; A9270

== ENCOUNTER 2024-03-04 13:42 | Outpatient (CLI) | payer MEDICARE, OTHER ==
--- NOTE | 2024-03-12 11:49 | Mammography Report ---
BILATERAL DIGITAL SCREENING MAMMOGRAM 3D/2D: 03/04/2024 CLINICAL: Routine screening. Family history of breast cancer. No prior exams were available for comparison. There are scattered areas of fibroglandular density in both breasts (category b / 25%-50% glandular t issue). There is a focal asymmetry in the right breast at 1 o'clock middle depth. No other significant masses, calcifications, or other findings are seen in either breast. IMPRESSION: INCOMPLETE: NEEDS ADDITIONAL IMAGING EVALUATION The focal asymmetry in the right breast is indeterminate. Additional views with possible ultrasound are recommended. Based on the Tyrer Cuzick model (a risk assessment model) the patient's lifetime risk is 9.6% and her 10 year risk is 6.1%. According to the ACR, ACS, and NCCN guidelines, an annual breast MRI exam darline g with mammogram is recommended if the patient's lifetime risk is 20% or greater. This exam was interpreted at Station ID: [id number]. NOTE: For mammograms, a report in lay terms will be sent to the patient. Approximately 15% of breast malignancies will not be visualized mammographically. In the management of a palpable breast mass, a negative mammogram must not discourage biopsy of a clinically suspicious lesion. Electronically Signed By: Zhanna weaver/rosalina:03/11/2024 15:40:39 ACR BI-RADS Category 0: Incomplete 3340F PARENCHYMAL PATTERN: (A) - The breast(s) demonstrate(s) scattered fibroglandular densities. BI-RADS CATEGORY: (0) - 0 Mammo and [place] [id number] Immediate follow-up LATERALITY: (B)
== END 2024-03-04 13:43 | disposition home or self-care (01) ==
LOC: DI 13:42
DX: Z12.31 Encounter for screening mammogram for malignant neoplasm of breast (principal); Z80.3 Family history of malignant neoplasm of breast; R92.323 Mammographic fibroglandular density, bilateral breasts; R92.8 Other abnormal and inconclusive findings on diagnostic imaging of breast

== ENCOUNTER 2024-04-22 10:47 | Outpatient (CLI) | payer MEDICARE, OTHER ==
--- NOTE | 2024-04-23 10:42 | Mammography Report ---
UNILATERAL RIGHT DIGITAL DIAGNOSTIC MAMMOGRAM 3D/2D WITH SPOT COMPRESSION: 04/22/2024 CLINICAL: Routine screening. Comparison is made to exam dated: 03/04/2024 mammogram - [facility]. There are scattered areas of fibroglandular density in the right breast (category b / 25%-50% glandul ar tissue). There is a 5 mm oval equal density asymmetry with an obscured and circumscribed margin in the right b reast at 12 o'clock anterior depth. This is seen in additional views. No other significant masses or calcifications are seen in the breast. IMPRESSION: INCOMPLETE: NEEDS ADDITIONAL IMAGING EVALUATION The 5 mm oval equal density asymmetry in the right breast most likely is a cyst or a lymph node but r emains indeterminate. An ultrasound is recommended. This was performed immediately following this exam. Based on the Tyrer Cuzick model (a risk assessment model) the patient's lifetime risk is 9.6% and her 10 year risk is 6.1%. According to the ACR, ACS, and NCCN guidelines, an annual breast MRI exam darline g with mammogram is recommended if the patient's lifetime risk is 20% or greater. This exam was interpreted at Station ID: [id number]. NOTE: For mammograms, a report in lay terms will be sent to the patient. Approximately 15% of breast malignancies will not be visualized mammographically. In the management of a palpable breast mass, a negative mammogram must not discourage biopsy of a clinically suspicious lesion. Electronically Signed By: Julianne crockett/:04/22/2024 11:26:50 ACR BI-RADS Category 0: Incomplete 3340F PARENCHYMAL PATTERN: (A) - The breast(s) demonstrate(s) scattered fibroglandular densities. BI-RADS CATEGORY: (0) - 0 Ultrasound [id number] Immediate follow-up LATERALITY: (B)
--- NOTE | 2024-04-23 10:42 | Ultrasound Report ---
LIMITED ULTRASOUND OF RIGHT BREAST: 04/22/2024 CLINICAL: Patient returns today to evaluate a focal asymmetry in the right breast. Comparison is made to exams dated: 04/22/2024 mammogram and 03/04/2024 mammogram - [facility]. Color flow ultrasound of the right breast 12 o'clock region was performed. Gilliland scale images of the real-time examination were reviewed. There is a 0.4 cm x 0.5 cm x 0.4 cm round cyst with a few hyperechoic thin clefts or folds, in the ri ght breast at 12 o'clock anterior depth 2 cm from the nipple. This round cyst is anechoic. This cor relates with mammography findings. Color flow imaging demonstrates that there is no vascularity pres ent. IMPRESSION: BENIGN There is no sonographic evidence of malignancy. The 0.5 cm round cyst in the right breast corresponds to the mammogram finding, is consistent with a simple cyst and is benign. Return to annual mammogram screening schedule is recommended. Findings and recommendations were con veyed to the patient at time of exam. This exam was interpreted at Station ID: [id number]. Electronically Signed By: Julianne crockett/:04/22/2024 12:01:13 letter sent: No_Letter Ultrasound BI-RADS: 2 Benign BI-RADS CATEGORY: (2) - 2 Mammogram [id number] return to screening LATERALITY: (B)
== END 2024-04-22 10:48 | disposition home or self-care (01) ==
LOC: DI 10:47
PROVIDERS: ATTEND Internal Medicine Geriatric Medicine
DX: N60.01 Solitary cyst of right breast (principal); R92.321 Mammographic fibroglandular density, right breast
CPT/HCPCS: 10006